=== PATIENT | male | born 2000 | race Caucasian/White ===

== ENCOUNTER 2023-05-16 16:23 | Outpatient (REF) | payer OTHER, SELFPAY ==
[2023-05-20 11:39] LABS: Hemoglobin S Screen Negative (Negative)
== END 2023-05-16 16:24 | disposition home or self-care (01) ==
LOC: LBN 16:23
PROVIDERS: Visit Provider Physician Assistant
DX: Z13.0 Encounter for screening for diseases of the blood and blood-forming organs and certain disorders involving the immune mechanism (principal); Z02.5 Encounter for examination for participation in sport
CPT/HCPCS: 85660

== ENCOUNTER 2025-02-11 09:30 | Emergency (ER) | payer OTHER, SELFPAY ==
[2025-02-11 09:39] VITALS: BP 135/77; PULSE 73; RESP 20; TEMP 36.8; O2SAT 96
--- NOTE | 2025-02-11 09:45 | DI.RAD_ITS ---
Exam(s) XR RIBS RT PA CHEST 3V CLINICAL HISTORY: pain with inspiration after lifting R. ant chest. COMPARISON: No exams were available for comparison TECHNIQUE:: PA view of the chest and four views of the right ribs were performed. FINDINGS: LUNGS:Clear. No pleural abnormality seen. HEART: Normal size. MEDIASTINUM: Normal. BONES: No displaced rib fracture is seen. No bony destructive lesion is seen. IMPRESSION: 1. Unremarkable radiographic appearance of the right ribs. 2. No acute pulmonary findings.
[2025-02-11 09:47] VITALS: BP 135/77; PULSE 73; RESP 20; TEMP 36.8; O2SAT 96
--- NOTE | 2025-02-11 10:35 | ED.GENADUL_ITS ---
Discharge Plan Disposition Patient Disposition: Home Condition: Stable Discharge Details Clinical Impression: Anterior chest wall pain Primary Care Provider: None,None ED Provider: Lisa Gaines Home Meds and New Rx's Prescriptions: No Action No Known Home Meds Discharge Instructions Instructions: Costochondritis Additional Instructions: You were seen in the emergency department today for evaluation of sharp pain in the front of your right sided chest. In our department a full physical examination performed, had reassuring vital signs and had an x-ray that did not show any abnormalities in your lungs or your ribs at this time. It is most likely that you are experiencing a musculoskeletal condition such as costochondritis. I recommend that you trial [id number] topical therapies such as Lidoderm patches, and please use therapeutic dosing of Tylenol (acetaminophen) & Advil (ibuprofen) in an alternating fashion as follows: Take 1000mg of Tylenol every 6 hours without missing doses- that is 4 times per day. Retirement in between the Tylenol doses, take 600mg of Advil also on a 6 hour schedule, that is also 4 times per day. With this strategy, you will be taking something for fever/pain as often as every 3 hours. The daily maximum dosing of Tylenol is 4000mg, and the daily maximum dosing of Advil is 2400mg. Please note that some common cold medications & prescription pain medications may contain acetaminophen and you need to read OTC drug labels and factor that in to maximum daily doses. Please follow-up with your primary care provider in the next few days to discuss this visit and any symptoms that change, worsen, or persist. Thank you for allowing us to be part of your care. Stand Alone Forms: Portal Information HPI General Mode of arrival: ambulatory . Date/Time Provider Initiated Documentation: 02/11/25 09:37 . Limitations to Documentation: no limitations . Information obtained by: patient and old records reviewed . HPI Narrative: This is a 24-year-old male patient without significant past medical history presenting for evaluation of right-sided chest pain. The patient reports that yesterday he had a very active day, doing some deadlifts, running 2 miles and ski touring. He states that this is not outside of the ordinary for him, but he did experience some sharp pain in his anterior right chest that is worse when he tries to take a deep breath or bend over. He reports that he has not had pain like this in the past, denies dizziness, cough, upper respiratory symptoms, abdominal discomfort or other associated symptoms. No personal history of cardiac disease, has not tried any medications at home for management of this complaint. Related Data Home Medications ?Medication ?Instructions ?Recorded ?Confirmed Unknown [No Known Home Meds] 05/16/23 1 04/14/24 Allergies Allergy/AdvReac Type Severity Reaction Status Date / Time No Known Allergies Allergy Verified 02/11/25 09:38 General Stated Complaint: RespSymp ALEXIS: 3 Exam Narrative Exam Narrative: Gen: Awake and alert, in no apparent distress HEENT: Non-icteric sclera Neck: Supple Lungs: No apparent respiratory distress, normal respiratory effort. Lung sounds clear and equal bilaterally without wheezes, rhonchi, rales CV: Appears well perfused, heart with regular rate and rhythm, strong distal pulses. Chest wall is without crepitus or deformity, overlying skin changes, minimal tenderness to palpation along the inferior costal margin of the anterior right chest Abdomen: Non-distended, soft, nontender to palpation without rigidity, rebound, or guarding. MSK: Moves 4 extremities without apparent limitation in ROM. No peripheral ed lor Skin: Visualized skin without rashes, cyanosis. Neuro: Normal Gait, no obvious focal deficits or facial asymmetry. Speaks in full, clear sentences. Psych: Appropriate for situation. Course Vital Signs Vital signs: Vital Signs Temperature 36.8 C 02/11/25 09:39 Pulse 73 02/11/25 09:39 Respiratory Rate 20 02/11/25 09:39 Blood Pressure 135/77 02/11/25 09:39 Pulse Oximetry 96 02/11/25 09:39 Temperature 36.8 C 02/11/25 09:47 Temperature Source Oral 02/11/25 09:47 Pulse 73 02/11/25 09:47 Respiratory Rate 20 02/11/25 09:47 Respiratory Depth Normal 02/11/25 09:47 Blood Pressure 135/77 02/11/25 09:47 Pulse Oximetry 96 02/11/25 09:47 Oxygen Delivery Method Room Air 02/11/25 09:47 Oxygen Flow Rate 0 02/11/25 09:47 Pain Level 6 02/11/25 09:47 Medical Decision Making This is a 24-year-old male patient presenting for evaluation of anterior right chest pain. Differential includes but is not limited to musculoskeletal etiolo gies, including costochondritis, chest wall strain, considered rib injury though the patient is without discrete traumatic event, including fracture and contusion. Considered pulmonary abnormalities including pneumothorax, pneumonia, pulmonary edema, pleural effusion. The patient has no personal thromboembolic history, PE was considered, patient does not meet PERC criteria at this time for PE rule out without labs. The patient has atypical symptoms, and is young and without risk factors and I have a low concern for ACS. I did shared decision-making conversation with the patient, who does not want any medications at this time for his pain or discomfort. I do not see an indication at this time to proceed with laboratory studies, but will obtain an x-ray of the affected chest and right ribs to evaluate for causes of this patient's pain. X-ray was reviewed by myself, and shows no acute abnormalities to account for this patient's pain. I shared these findings with the patient who reports that he feels quite reassured, and we discussed a trial of conservative multimodal pain management in the outpatient department with Tylenol, ibuprofen, and Lidoderm. At this time, the patient has had a full medical evaluation and is safe for discharge to home. They are hemodynamically stable, ambulatory, and tolerating PO. They are understanding of the follow-up plan and return precautions. They left our facility without incident. Lisa Gaines MD [facility] All Active Problems (Updated 02/11/25 @ 10:36 by Lisa Gaines MD) Anterior chest wall pain (Acute) Social History Smoking/Tobacco Use Status: Never Smoking risk assessment performed?: Yes Alcohol Intake: current Alcohol Intake frequency: a few times a month Alcohol type: beer and wine Drug use: Never Substance use type: does not use PAWSS Have you Been Recently Intoxicated or Drunk Within the Last 30 days?: No Have you Ever Experienced Previous Episodes of Alcohol Withdrawal?: No Have you ever Experienced Withdrawal Seizures?: No Have you ever Experienced Delirium Tremens(DT)s?: No Have you ever undergone Alcohol Rehabilitation Treatment (i.e, inpt ot outpatient treatment programs)?: No Have you ever Experienced Blackouts?: No Have you ever Combined Alcohol with other Downers within the last 90 days?: No Have you ever Combined Alcohol with any other Substance of Abuse during the last 90 days?: No Positive Blood Alcohol level on Presentation? [PCS.BAL]: No Evidence of Increased Autonomic Activity (i.e. HR>120, tremor, sweating, agitation, nausea)?: No Result: 0
== END 2025-02-11 10:40 | disposition home or self-care (01) ==
LOC: ER 10:43
PROVIDERS: Emergency Provider Emergency Medicine
DX: R07.89 Other chest pain (principal)
CPT/HCPCS: 99283; 99284; 71046; 71100